=== PATIENT | female | born 1955 | race African-American/Black ===

== ENCOUNTER 2021-08-02 12:27 | Outpatient (CLI) | payer MEDICARE, OTHER | END 2021-08-02 12:28 | disposition home or self-care (01) | LOC: BICMAMMO 12:27 | PROVIDERS: ATTEND Family Medicine | DX: Z12.31 Encounter for screening mammogram for malignant neoplasm of breast (principal) | CPT/HCPCS: 77063; 77067 ==

== ENCOUNTER 2021-12-16 16:51 | Inpatient (IN) | payer MEDICARE, OTHER ==
[2021-12-16 17:23] LABS: #Eosinphils 0.2 thou/uL (0.0-0.7); #Lymphocytes 2.6 thou/uL (1.20-3.40); #Monocytes 0.4 thou/uL (0.11-0.59); #Neutrophils 2.1 thou/uL (1.40-6.50); %Basophils 0.7 % (0.0-1.0); %Eosinophils 4.4 % (0.0-10.0); %Lymphocytes 47.6 % (21.0-51.0); %Monocytes 7.5 % (0.0-10.0); %Neutrophils 39.8 % (42.0-75.0); Hemoglobin 10.5 g/dL (12.0-16.0); Mean Corpuscular HGB CONC 33.4 g/dL (32.0-36.0); Mean Corpuscular Hemoglobin 29.5 pg (27.0-31.0); Mean Corpuscular Volume 88.2 fL (78.0-98.0); Mean Platelet Volume 7.7 fL (7.4-10.4); Platelet Count 240 thou/uL (130-400); RBC Distribution Width 12.7 % (11.5-14.5); Red Blood Cell (RBC) Count 3.55 mill/uL (4.20-5.40); White Blood Cell (WBC) Count 5.4 thou/uL (4.8-10.8)
[2021-12-16 18:16] LABS: ALT (SGPT) 11 U/L (8-55); AST (SGOT) 10 U/L (5-34); Albumin 3.4 g/dL (3.4-4.8); Alkaline Phosphatase 57 U/L (40-110); Anion Gap 11 mmol/L (10-20); BUN (Urea Nitrogen) 17 mg/dL (9.8-20.1); Bilirubin, Total 0.2 mg/dL (0.2-1.2); Calc. Creatinine Clearance 0 mL/min (70-130); Calcium 7.9 mg/dL (7.8-10.44); Carbon Dioxide 22 mmol/L (23-31); Chloride 107 mmol/L (98-107); Globulin 2.8 g/dL (2.4-3.5); Glucose 94 mg/dL (80-115); Potassium 3.6 mmol/L (3.5-5.1); Protein, Total 6.2 g/dL (5.8-8.1); Sodium 136 mmol/L (136-145)
[2021-12-16] MEDS ORDERED: Calcium Chloride 1 GM/10 ML Abboject SYRINGE ONE (18:26)
[2021-12-16] MEDS ORDERED: SODIUM CHLORIDE IVPB SCH (21:00)
[2021-12-16] MEDS ORDERED: ADMIXTURE FEE IVPB SCH (21:00)
[2021-12-16] MEDS ORDERED: GLUCAGON IVPB SCH (21:00)
[2021-12-16 21:56] LABS: Troponin I Less than 0.010 ng/mL (< 0.028)
[2021-12-16 23:31] VITALS: BMI 30.6
[2021-12-17 00:26] LABS: Troponin I Less than 0.010 ng/mL (< 0.028)
[2021-12-17] MEDS ORDERED: Acetaminophen 650 MG Suppository PR PRN (02:51)
[2021-12-17] MEDS ORDERED: Ondansetron ODT 4 MG TAB PO PRN (02:51)
[2021-12-17] MEDS ORDERED: Ondansetron PF 4 MG/2 ML Vial IVP PRN (02:51)
[2021-12-17] MEDS ORDERED: ADMIXTURE FEE IVPB SCH (03:00)
[2021-12-17] MEDS ORDERED: SODIUM CHLORIDE IVPB SCH (03:00)
[2021-12-17] MEDS ORDERED: Electrolyte Replacement Protocol 1 EACH FS SCH (03:00)
[2021-12-17] MEDS ORDERED: GLUCAGON IVPB SCH (03:00)
[2021-12-17] MEDS ORDERED: Sodium Chloride 0.9% 1,000 ML IV SCH ×2 (03:15→05:45)
[2021-12-17] MEDS ORDERED: Magnesium 2 GM/50 ML 2 GM in Premix Bag 1 BAG IVPB SCH ×2 (03:15→06:00)
[2021-12-17 04:50] LABS: #Lymphocytes 1.4 thou/uL (1.20-3.40); #Monocytes 0.2 thou/uL (0.11-0.59); #Neutrophils 6.6 thou/uL (1.40-6.50); %Basophils 0.2 % (0.0-1.0); %Eosinophils 0.3 % (0.0-10.0); %Monocytes 2.9 % (0.0-10.0); %Neutrophils 79.5 % (42.0-75.0); Hemoglobin 10.8 g/dL (12.0-16.0); Mean Corpuscular HGB CONC 32.5 g/dL (32.0-36.0); Mean Corpuscular Hemoglobin 28.9 pg (27.0-31.0); Mean Platelet Volume 7.7 fL (7.4-10.4); Platelet Count 210 thou/uL (130-400); RBC Distribution Width 12.7 % (11.5-14.5); Red Blood Cell (RBC) Count 3.75 mill/uL (4.20-5.40); White Blood Cell (WBC) Count 8.3 thou/uL (4.8-10.8)
[2021-12-17 05:16] LABS: Anion Gap 7 mmol/L (10-20); BUN (Urea Nitrogen) 20 mg/dL (9.8-20.1); Calc. Creatinine Clearance 54 mL/min (70-130); Calcium 9.1 mg/dL (7.8-10.44); Carbon Dioxide 24 mmol/L (23-31); Chloride 110 mmol/L (98-107); Glucose 151 mg/dL (80-115); Potassium 4.3 mmol/L (3.5-5.1); Sodium 137 mmol/L (136-145)
[2021-12-17 06:47] LABS: Iron 51 ug/dL (50-170); Iron Binding Capacity, Total 214 mcg/dL (265-497)
[2021-12-17] MEDS ORDERED: GUAIFENESIN SF SOLN 200 MG/10 ML UDCUP PO PRN (07:47)
[2021-12-17] MEDS ORDERED: Loperamide HCl 2 MG CAP PO PRN (07:47)
[2021-12-17] MEDS ORDERED: Loratadine 10 MG TAB PO PRN (07:47)
[2021-12-17] MEDS ORDERED: Hydrocerin (Eucerin) Cream 120 gm Jar TOP PRN (07:47)
[2021-12-17] MEDS ORDERED: Calcium Carbonate 500 MG ChewTAB PO PRN (07:47)
[2021-12-17] MEDS ORDERED: HYDROcodone/Acetaminophen 5/325 mg Tablet PO PRN (07:47)
[2021-12-17] MEDS ORDERED: Senokot S 8.6-50 MG TAB PO PRN (07:47)
[2021-12-17] MEDS ORDERED: Zolpidem Tartrate 5 MG TAB PO PRN (07:47)
[2021-12-17] MEDS ORDERED: Artificial Tear Sol 15 ML BOT EA EYE PRN (07:47)
[2021-12-17] MEDS: Enoxaparin Sodium 30 MG/0.3 ML SYRINGE SC SCH (09:41)
[2021-12-17 13:15] LABS: SARS-CoV-2 PCR by NAA Not Detected (NotDetected)
[2021-12-17] MEDS: hydrALAZINE 20 MG/ML VIAL SLOW IVP PRN ×2 (15:16→20:22)
[2021-12-17] MEDS ORDERED: NIFEdipine XL 30 MG TAB PO SCH (17:45)
[2021-12-17] MEDS ORDERED: Carvedilol 3.125 MG TAB PO SCH (21:30)
[2021-12-18] MEDS: hydrALAZINE 20 MG/ML VIAL SLOW IVP PRN (03:18)
[2021-12-18 05:52] LABS: Anion Gap 13 mmol/L (10-20); BUN (Urea Nitrogen) 9 mg/dL (9.8-20.1); Calc. Creatinine Clearance 81 mL/min (70-130); Calcium 9.5 mg/dL (7.8-10.44); Carbon Dioxide 21 mmol/L (23-31); Chloride 109 mmol/L (98-107); Glucose 86 mg/dL (80-115); Magnesium 1.7 mg/dL (1.6-2.6); Phosphorus 3.6 mg/dL (2.3-4.7); Potassium 3.7 mmol/L (3.5-5.1); Sodium 139 mmol/L (136-145)
[2021-12-18 06:00] LABS: Hemoglobin 11.1 g/dL (12.0-16.0); Mean Corpuscular Hemoglobin 28.3 pg (27.0-31.0); Mean Corpuscular Volume 88.5 fL (78.0-98.0); Mean Platelet Volume 8.3 fL (7.4-10.4); Platelet Count 224 thou/uL (130-400); RBC Distribution Width 12.9 % (11.5-14.5); Red Blood Cell (RBC) Count 3.92 mill/uL (4.20-5.40); White Blood Cell (WBC) Count 5.6 thou/uL (4.8-10.8)
[2021-12-18] MEDS: Acetaminophen 325 MG TAB PO PRN (06:21)
[2021-12-18 06:41] LABS: Eosinophils 5 % (0-10); Lymphocytes 51 % (21-51); MDiff Complete? YES; Monocytes 9 % (0-10); Neutrophil 35 % (42-75)
[2021-12-18] MEDS ORDERED: Magnesium 2 GM/50 ML 2 GM in Premix Bag 1 BAG IVPB SCH (07:00)
[2021-12-18] MEDS ORDERED: Carvedilol 3.125 MG TAB PO SCH ×2 (08:00→08:45)
[2021-12-18] MEDS ORDERED: NIFEdipine XL 60 MG TAB PO SCH (09:00)
[2021-12-18] MEDS ORDERED: NIFEdipine XL 30 MG TAB PO SCH (09:00)
[2021-12-18] MEDS: Enoxaparin Sodium 30 MG/0.3 ML SYRINGE SC SCH (09:34)
[2021-12-18] MEDS: Carvedilol 3.125 MG TAB PO SCH (16:37)
[2021-12-18] MEDS: NIFEdipine XL 60 MG TAB PO SCH (21:32)
[2021-12-19] MEDS: NIFEdipine XL 60 MG TAB PO SCH ×2 (08:57→21:00)
[2021-12-19] MEDS: Carvedilol 3.125 MG TAB PO SCH (08:57)
[2021-12-19] MEDS: Enoxaparin Sodium 30 MG/0.3 ML SYRINGE SC SCH (08:57)
[2021-12-19] MEDS ORDERED: Cosyntropin 250 MCG VIAL SLOW IVP SCH (10:00)
[2021-12-19] MEDS ORDERED: Carvedilol 6.25 MG TAB PO SCH (11:30)
[2021-12-19] MEDS: hydrALAZINE 20 MG/ML VIAL SLOW IVP PRN (16:42)
[2021-12-19] MEDS: Carvedilol 6.25 MG TAB PO SCH (16:42)
[2021-12-19] MEDS ORDERED: Carvedilol 3.125 MG TAB PO SCH (17:00)
[2021-12-19] MEDS: Atorvastatin Calcium 40 MG TAB PO SCH (21:00)
[2021-12-20 04:10] LABS: Anion Gap 12 mmol/L (10-20); BUN (Urea Nitrogen) 9 mg/dL (9.8-20.1); Calc. Creatinine Clearance 76 mL/min (70-130); Calcium 9.5 mg/dL (7.8-10.44); Chloride 101 mmol/L (98-107); Glucose 111 mg/dL (80-115); Potassium 3.5 mmol/L (3.5-5.1); Sodium 136 mmol/L (136-145)
[2021-12-20 04:16] LABS: Carbon Dioxide 27 mmol/L (23-31)
[2021-12-20] MEDS ORDERED: Potassium Chloride 20 MEQ TAB PO SCH (07:00)
[2021-12-20] MEDS ORDERED: hydrALAZINE 25 MG TAB PO SCH (09:00)
[2021-12-20] MEDS ORDERED: PROPOFOL 200 MG/20 ML VIAL ONE (09:30)
[2021-12-20] MEDS ORDERED: Lidocaine 1% PF 5 ML VIAL ONE (09:30)
[2021-12-20] MEDS: Enoxaparin Sodium 30 MG/0.3 ML SYRINGE SC SCH (10:56)
[2021-12-20] MEDS: NIFEdipine XL 60 MG TAB PO SCH ×2 (10:56→20:52)
[2021-12-20] MEDS: Carvedilol 6.25 MG TAB PO SCH ×2 (10:59→18:03)
[2021-12-20] MEDS: Acetaminophen 325 MG TAB PO PRN ×2 (13:38→23:01)
[2021-12-20] MEDS: Atorvastatin Calcium 40 MG TAB PO SCH (20:53)
[2021-12-20] MEDS: hydrALAZINE 25 MG TAB PO SCH (20:53)
[2021-12-21] MEDS ORDERED: Enoxaparin Sodium 40 MG/0.4 ML SYRINGE SC SCH (09:00)
[2021-12-21] MEDS: NIFEdipine XL 60 MG TAB PO SCH (09:11)
[2021-12-21] MEDS: hydrALAZINE 25 MG TAB PO SCH (09:11)
[2021-12-21] MEDS: Carvedilol 6.25 MG TAB PO SCH (09:12)
[2021-12-21 11:25] VITALS: BP 127/60; TEMP 97.7
== END 2021-12-21 13:43 | disposition home or self-care (01) | DRG 918 ==
LOC: ERS 16:51 → ERHOLD 20:53 → 2NO 22:48
PROVIDERS: ADMIT Student in an Organized Health Care Education/Training Program; ATTEND Family Medicine
PROC: B24BZZ4 Ultrasonography of Heart with Aorta, Transesophageal (ICD-10-PCS; principal; 2021-12-20)
DX: T44.7X1A Poisoning by beta-adrenoreceptor antagonists, accidental (unintentional), initial encounter (principal); N17.9 Acute kidney failure, unspecified; E78.5 Hyperlipidemia, unspecified; Z20.822 Contact with and (suspected) exposure to COVID-19; R00.1 Bradycardia, unspecified; I95.2 Hypotension due to drugs; D63.1 Anemia in chronic kidney disease; N18.2 Chronic kidney disease, stage 2 (mild); I12.9 Hypertensive chronic kidney disease with stage 1 through stage 4 chronic kidney disease, or unspecified chronic kidney disease; E66.9 Obesity, unspecified; Z68.29 Body mass index [BMI] 29.0-29.9, adult; Z79.82 Long term (current) use of aspirin; Z79.899 Other long term (current) drug therapy
CPT/HCPCS: 36415; 36416; 71045; 76770; 80048; 80053; 80400; 82088; 82533; 82728; 83540; 83550; 83735; 83880; 84100; 84244; 84484; 85025; 93005; 93306; 93312; 93975; 94760; 96365; 96374; 96376; J0360; J0834; J1610; J1650; J2704; J3475; J3490; J7050; U0003; U0005

== ENCOUNTER 2022-10-22 09:22 | Outpatient (CLI) | payer OTHER | END 2022-10-22 09:23 | disposition home or self-care (01) | LOC: BICCT 09:22 | PROVIDERS: ATTEND Internal Medicine Nephrology | DX: I12.9 Hypertensive chronic kidney disease with stage 1 through stage 4 chronic kidney disease, or unspecified chronic kidney disease (principal); N18.1 Chronic kidney disease, stage 1; K80.20 Calculus of gallbladder without cholecystitis without obstruction | CPT/HCPCS: 74170; 82565 ==